=== PATIENT | female | born 1970 | race Caucasian/White ===

== ENCOUNTER 2016-10-02 01:39 | Emergency (ER) | payer OTHER ==
[~2016-10-02] VITALS: Ht 157.5 cm; Wt 52.2 kg
[~2016-10-02 01:39] MED LIST: ACETAMINOPHEN PO; ALBUTEROL MININEB NEB; ALBUTEROL17 G1 INH; ALBUTEROL17 GM INH; AMOXICILLIN PO; AMOXICILLIN500 M1 PO; ATROVENT NEB; BENZONATATE PO; CIPRO PO; COMBIVENT INH14.7 G1; COMBIVENT INH14.7 GM INH; COMBIVENT MININEB INH; COMBIVENT RESPIM4 GM IH; COMBIVENT U/D3 M1 INH; COMBIVENT U/D3 ML INH; FAMOTIDINE PO; FLOVENT HFA12 GM INH; GUAIFENESIN W-120 ML PO; K-DUR20 ME1 PO; LEVAQUIN PO; MEDROL PO; NASONEX17 GM; NO MEDICATIONS; PHENERGAN VC W120 M1 PO; PHENERGAN W/CO120 ML PO; POLYTRIM O10 ML OPTH OD; PREDNISONE PO; ROBITUSSIN ALL118 ML PO; ROBITUSSIN COU118 ML PO; VIBRAMYCIN100 M1 PO; VICODIN 5/500 T1 TAB PO; VOLTAREN75 MG PO; ZANTAC PO; ZITHROMAX PO
[2016-10-02] MEDS ORDERED: NO MEDICATIONS (02:02)
== END 2016-10-02 02:44 | disposition home or self-care (01) ==
LOC: SED 01:39
DX: L03.116 Cellulitis of left lower limb (principal); J45.909 Unspecified asthma, uncomplicated; Z88.1 Allergy status to other antibiotic agents
CPT/HCPCS: 99282